=== PATIENT | female | born 1955 | race American Indian/Alaskan Native ===

== ENCOUNTER 2017-06-09 22:02 | Emergency (ER) | payer SELFPAY ==
--- NOTE | 2017-06-09 22:44 | C.PDOC ---
History Of Present Illness Patient presents to the ED for evaluation of sensation of fish bone stuck in throat. Patient states she was eating fish earlier today and felt the sensation afterwards. Denies shortness of breath or drooling. Time Seen by Provider: 06/09/17 22:44 Chief Complaint (Nursing): ENT Problem History Per: Patient History/Exam Limitations: None Onset/Duration Of Symptoms: Hrs Current Symptoms Are (Timing): Still Present Quality (Mouth/Throat): Other (foreign body sensation ) Severity: Mild Pain Scale Rating Of: 4 Anticoagulant/Antiplatlet Use?: No Recent Aspirin Use: No Past Medical History Reviewed: Historical Data, Nursing Documentation, Vital Signs Vital Signs: Last Vital Signs Temp 97.4 F L 06/09/17 22:17 Pulse 70 06/09/17 22:17 Resp 20 06/09/17 22:17 BP 192/97 H 06/09/17 22:17 Pulse Ox 99 06/10/17 00:07 Family History: States: Unknown Family Hx - Social History Hx Alcohol Use: No Hx Substance Use: No - Immunization History Hx Tetanus Toxoid Vaccination: No Hx Influenza Vaccination: No Hx Pneumococcal Vaccination: No Review Of Systems Constitutional: Negative for: Fever, Chills ENT: Positive for: Other (feeling fish bone stuck in throat ). Negative for: Throat Pain Gastrointestinal: Negative for: Nausea, Vomiting Musculoskeletal: Negative for: Neck Pain Physical Exam - Physical Exam Appears: Non-toxic, No Acute Distress Skin: Warm, Dry Head: Atraumatic Eye(s): bilateral: Normal Inspection Oral Mucosa: Moist Throat: Normal, No Erythema, No Exudate, No Drooling, Other (Oral pharynx is clear. Supraglotic area is clear of foreign body. ) Neck: Supple Chest: Symmetrical, No Deformity Cardiovascular: Rhythm Regular, No Murmur Respiratory: No Rales, No Rhonchi, No Wheezing, Other (Clear to auscultation bilaterally. Patient speaking in complete sentences. ) Neurological/Psych: Oriented x3 ED Course And Treatment O2 Sat by Pulse Oximetry: 99 (RA ) Pulse Ox Interpretation: Normal - CT Scan/US CT Neck Without Intravenous Contrast Other Rad Studies (CT/US): Read By Radiologist, Radiology Report Reviewed CT/US Interpretation: FINDINGS: Nasopharynx: Unremarkable. Oropharynx: Unremarkable. No significant tonsillar enlargement. Hypopharynx: Unremarkable. Larynx: Unremarkable. Normal epiglottis. Trachea: Unremarkable. Retropharyngeal space: Unremarkable. Submandibular/parotid glands: Unremarkable. Glands are normal in size. Thyroid: Unremarkable. No enlarged or calcified nodules. Bones/joints: Diffuse spinal degenerative changes. No acute fracture. Soft tissues: Unremarkable. Vasculature: Atherosclerotic vascular disease. Lymph nodes: Unremarkable. No lymphadenopathy. Lung apices: Unremarkable as visualized. IMPRESSION: No evidence of retained foreign body. Progress Note: Neck soft tissue CT was ordered. pt speakin gin complete sentences. NO f/c/n/v. no drooling Reevaluation Time: 00:19 Reassessment Condition: Improved Disposition Counseled Patient/Family Regarding: Studies Performed, Diagnosis, Need For Followup - Disposition Referrals: Benito Ellison MD [Staff Provider] - Disposition: HOME/ ROUTINE Disposition Time: 22:44 Condition: FAIR Additional Instructions: Please follow up with the ENT doctor or return if symptoms recur Instructions: Foreign Body Ingestion (ED) Forms: [employer] (Setswana) - Clinical Impression Clinical Impression: Sore throat - Scribe Statement The provider has reviewed the documentation as recorded by the Scribe Sima Minor All medical record entries made by the Peggyibparisa were at my direction and personally dictated by me. I have reviewed the chart and agree that the record accurately reflects my personal performance of the history, physical exam, medical decision making, and the department course for this patient. I have also personally directed, reviewed, and agree with the discharge instructions and disposition.
--- NOTE | 2017-06-10 00:01 | CT ---
EXAM: CT Neck Without Intravenous Contrast CLINICAL HISTORY: 62 years old, female; Pain; Neck pain and other: Poss fish bone above glottis TECHNIQUE: Axial computed tomography images of the neck without intravenous contrast. All CT scans at this facility use one or more dose reduction techniques, viz.: automated exposure control; ma/kV adjustment per patient size (including targeted exams where dose is matched to indication; i.e. head); or iterative reconstruction technique. Coronal and sagittal reformatted images were created and reviewed. COMPARISON: No relevant prior studies available. FINDINGS: Nasopharynx: Unremarkable. Oropharynx: Unremarkable. No significant tonsillar enlargement. Hypopharynx: Unremarkable. Larynx: Unremarkable. Normal epiglottis. Trachea: Unremarkable. Retropharyngeal space: Unremarkable. Submandibular/parotid glands: Unremarkable. Glands are normal in size. Thyroid: Unremarkable. No enlarged or calcified nodules. Bones/joints: Diffuse spinal degenerative changes. No acute fracture. Soft tissues: Unremarkable. Vasculature: Atherosclerotic vascular disease. Lymph nodes: Unremarkable. No lymphadenopathy. Lung apices: Unremarkable as visualized. IMPRESSION: No evidence of retained foreign body.
[2017-06-10 00:33] VITALS: BP 141/93; PULSE 68; RESP 16; TEMP 97.8; O2SAT 98
== END 2017-06-10 00:32 | disposition home or self-care (01) ==
LOC: C.ER 22:02
DX: R09.89 Other specified symptoms and signs involving the circulatory and respiratory systems (principal)